=== PATIENT | male | born 1965 | race Caucasian/White ===

== ENCOUNTER → 2021-05-29 | Outpatient (CLI) | payer OTHER ==
[~2021-05-29] VITALS: Ht 170.2 cm; Wt 86.2 kg
[2021-05-29] VITALS (7 sets, daily range): BP systolic 129–145; BP diastolic 66–84
[~2021-05-29] MED LIST: AMLODIPINE BESY10 MG PO; ASA81BEC PO; BENAZEPRIL HCL40 MG PO; EFFIENT10 MG PO; FLOMAX0.4 MG PO; HYDROCODON-ACE1 EAC7 PO; IBUPROFEN 800800 MG PO; LIPITOR40 MG PO; MELOXICAM15 MG PO; NITROSTAT0.4 M1 SUBLING; NORCO 5-325 TA1 EACH PO; PROTONIX40 M2 PO; PROVENTIL HFA6.7 G1 INH; ZOFRAN4 MG PO
[2021-05-29 08:21] LABS: HEMATOCRIT 43.7 % (42.0-52.0); HEMOGLOBIN 15.1 gm/dL (14.0-18.0); MCH 32.1 pg (26.0-34.0); MCHC 34.5 g/dL (28.0-37.0); RBC 4.7 mil/uL (4.50-6.00); RDW 12.5 % (10.5-14.5); WBC 8.1 thou/uL (4.0-11.0)
[2021-05-29 08:30] LABS: CALCIUM 8.9 mg/dL (8.5-10.1); CREATININE 0.9 mg/dL (0.7-1.3); POTASSIUM 3.5 mmol/L (3.5-5.1)
== END | disposition home or self-care (01) ==
LOC: CATH 07:20
PROVIDERS: ATTEND Nuclear Medicine Nuclear Cardiology
DX: I70.213 Atherosclerosis of native arteries of extremities with intermittent claudication, bilateral legs (principal); I70.1 Atherosclerosis of renal artery; I10 Essential (primary) hypertension; I25.10 Atherosclerotic heart disease of native coronary artery without angina pectoris; E78.5 Hyperlipidemia, unspecified; Z87.442 Personal history of urinary calculi; F17.210 Nicotine dependence, cigarettes, uncomplicated; Z98.890 Other specified postprocedural states; Z79.899 Other long term (current) drug therapy; Z88.8 Allergy status to other drugs, medicaments and biological substances

== ENCOUNTER → 2021-08-28 | Outpatient (CLI) | payer OTHER | LOC: SJCVCIMAG 06:34 | PROVIDERS: ATTEND Nuclear Medicine Nuclear Cardiology | DX: I65.23 Occlusion and stenosis of bilateral carotid arteries (principal); I73.9 Peripheral vascular disease, unspecified; M79.604 Pain in right leg; M79.605 Pain in left leg ==

== ENCOUNTER → 2021-09-10 | Outpatient (CLI) | payer OTHER ==
[~2021-09-10] VITALS: Ht 170.2 cm; Wt 84.8 kg
[2021-09-10 07:23] VITALS: BP 147/85
[2021-09-10 07:38] LABS: HEMATOCRIT 45.2 % (42.0-52.0); HEMOGLOBIN 15.3 gm/dL (14.0-18.0); MCH 31.1 pg (26.0-34.0); MCHC 33.9 g/dL (28.0-37.0); MCV 91.9 fL (80.0-100.0); RBC 4.92 mil/uL (4.50-6.00); WBC 9.1 thou/uL (4.0-11.0)
[2021-09-10 07:53] LABS: CALCIUM 9.1 mg/dL (8.5-10.1); POTASSIUM 3.8 mmol/L (3.5-5.1)
--- NOTE | 2021-09-10 10:53 | NUR ---
COLLECTED UA AND MRSA SWAB
[2021-09-10 11:09] LABS: URINE BILIRUBIN NEGATIVE (Negative); URINE BLOOD TRACE (Negative); URINE CLARITY CLEAR; URINE COLOR YELLOW; URINE GLUCOSE-RANDOM* NEGATIVE (Negative); URINE KETONES NEGATIVE (Negative); URINE LEUKOCYTES-REFLEX NEGATIVE (Negative); URINE NITRITE-REFLEX NEGATIVE (Negative); URINE PROTEIN (DIPSTICK) NEGATIVE (Negative); URINE SPECIFIC GRAVITY <= 1.005 (1.005-1.035); URINE UROBILINOGEN 0.2 E.U./dl (0.2-1.0)
== END | disposition home or self-care (01) ==
LOC: CATH 09-09 07:17
PROVIDERS: Surgery Vascular Surgery; ATTEND Nuclear Medicine Nuclear Cardiology
DX: I65.23 Occlusion and stenosis of bilateral carotid arteries (principal); I70.1 Atherosclerosis of renal artery; M79.604 Pain in right leg; M79.605 Pain in left leg; I10 Essential (primary) hypertension; I73.9 Peripheral vascular disease, unspecified; I25.2 Old myocardial infarction; I25.10 Atherosclerotic heart disease of native coronary artery without angina pectoris; E78.5 Hyperlipidemia, unspecified; F17.210 Nicotine dependence, cigarettes, uncomplicated; Z98.890 Other specified postprocedural states; Z79.899 Other long term (current) drug therapy; Z87.442 Personal history of urinary calculi; Z88.8 Allergy status to other drugs, medicaments and biological substances

== ENCOUNTER 2021-09-11 15:17 | Inpatient (IN) | payer OTHER ==
[~2021-09-11] VITALS: Ht 170.2 cm; Wt 85.3 kg
[2021-09-19] MEDS ORDERED: BENAZEPRIL HCL20 MG PO (15:38)
[2021-09-19] MEDS ORDERED: EFFIENT10 MG PO (16:09)
[2021-09-27 07:12] VITALS: BP 140/91
--- NOTE | 2021-09-27 12:36 | NUR ---
Pt arrived to ICU from PACU accompanied by STEAM PIPE FITTER and PACU tech. PT had a right radial arterial line. Pt was on 2L NC . PT alert and oriented X3. at bedside. Pt updated on patient condition and was given ICU phone number and informed about the visitation policy. Pt groin site was checked by this RN and the STEAM PIPE FITTER. Right groin site soft and intact, no drainage on the dressing. Right neck soft and no drainage on the dressing.
[2021-09-28] VITALS (7 sets, daily range): BP systolic 92–123; BP diastolic 56–66
[2021-09-28 05:21] LABS: HEMATOCRIT 34.6 % (42.0-52.0); HEMOGLOBIN 11.9 gm/dL (14.0-18.0); MCH 31.8 pg (26.0-34.0); MCHC 34.3 g/dL (28.0-37.0); MCV 92.7 fL (80.0-100.0); RBC 3.74 mil/uL (4.50-6.00); WBC 12.6 thou/uL (4.0-11.0)
[2021-09-28 05:37] LABS: CALCIUM 7.9 mg/dL (8.5-10.1); CREATININE 1.1 mg/dL (0.7-1.3); POTASSIUM 4.1 mmol/L (3.5-5.1)
--- NOTE | 2021-09-28 13:27 | NUR ---
PT WAS DISCHARGED FROM ICU AT 1310 TO HOME. PT WAS PROVIDED WITH D/C PAPERWORK, EDUCATION, AND MEDICATION INFORMATION.
== END 2021-09-28 14:38 | disposition home or self-care (01) | DRG 36 ==
LOC: PRE → TBA 09-27 06:05 → PRE 09-27 10:55 → ICU 09-27 11:23 → PRE 09-27 12:42 → ICU 09-28 14:38
PROVIDERS: Physician Assistant; ADMIT Surgery Vascular Surgery; ATTEND Surgery Vascular Surgery
PROC: 037K3DZ Dilation of Right Internal Carotid Artery with Intraluminal Device, Percutaneous Approach (ICD-10-PCS; principal; 2021-09-27)
DX: I65.21 Occlusion and stenosis of right carotid artery (principal); I73.9 Peripheral vascular disease, unspecified; I10 Essential (primary) hypertension; E78.00 Pure hypercholesterolemia, unspecified; K21.9 Gastro-esophageal reflux disease without esophagitis; I25.10 Atherosclerotic heart disease of native coronary artery without angina pectoris; E78.5 Hyperlipidemia, unspecified; Z88.7 Allergy status to serum and vaccine; Z79.82 Long term (current) use of aspirin; Z79.899 Other long term (current) drug therapy; I25.2 Old myocardial infarction; Z87.442 Personal history of urinary calculi; Z71.6 Tobacco abuse counseling; Z95.5 Presence of coronary angioplasty implant and graft; Z87.891 Personal history of nicotine dependence
CPT/HCPCS: 10078; 47375; 50010; 50101; 50386; 50403; 50455; 51301; 52287; 54118; 56524; 56526; 56528; 56531; 62110; 62900; 70005

== ENCOUNTER → 2021-09-20 | Outpatient (CLI) | payer OTHER ==
[~2021-09-20] MED LIST changes: +BENAZEPRIL HCL20 MG PO
[2021-09-20 14:44] LABS: ABSOLUTE NEUTROPHILS 5.2 thou/uL (1.4-8.2); BASOPHILS 0.4 % (0.0-2.0); EOSINOPHILS 3.5 % (0.0-3.0); HEMATOCRIT 42.7 % (42.0-52.0); HEMOGLOBIN 14.6 gm/dL (14.0-18.0); LYMPHOCYTES 22.5 % (24.0-44.0); MCH 31.3 pg (26.0-34.0); MCHC 34.1 g/dL (28.0-37.0); MCV 91.6 fL (80.0-100.0); MONOCYTES 6.5 % (1.0-8.0); PLATELET COUNT 216 thou/uL (150-400); POLYS 67.1 % (36.0-66.0); RBC 4.66 mil/uL (4.50-6.00); RDW 12.6 % (10.5-14.5); WBC 7.7 thou/uL (4.0-11.0)
[2021-09-20 14:58] LABS: APTT 27.6 Seconds (24.5-32.8); INR 1.03; PROTIME 11.2 Seconds (10.5-12.1)
[2021-09-20 15:06] LABS: ALBUMIN 3.9 g/dL (3.4-5.0); TOTAL BILIRUBIN 0.4 mg/dL (0.2-1.0); TOTAL PROTEIN 6.9 g/dL (6.4-8.2)
--- NOTE | 2021-09-20 16:10 | EKG ---
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: JUSTINA HERNANDEZ : 1965 Requested By: Jacoby Contreras Order Number: [id number] : Tarun Talavera Measurements Intervals Lane Rate: 66 P: 54 NC: 153 QRS: 39 QRSD: 102 T: 51 QT: 404 QTc: 424 Interpretive Statements Sinus rhythm Borderline ST elevation, anterior leads No previous ECG available for comparison Electronically Signed On 09-20-2021 16:10:17 CDT by Tarun Talavera [email or web address] <ELECTRONICALLY SIGNED> By: Tarun Talavera MD, [facility] 09/20/21 1610 1424 1424 Tarun Talavera MD, FACC /EPI
== END | disposition home or self-care (01) ==
LOC: PAC 13:52
PROVIDERS: Surgery Vascular Surgery; ATTEND Orthopaedic Surgery
DX: Z01.818 Encounter for other preprocedural examination (principal); E11.9 Type 2 diabetes mellitus without complications; I10 Essential (primary) hypertension; R92.8 Other abnormal and inconclusive findings on diagnostic imaging of breast

== ENCOUNTER → 2021-09-25 | Outpatient (CLI) | payer OTHER | LOC: LAB 10:55 | PROVIDERS: ATTEND Student in an Organized Health Care Education/Training Program | DX: Z01.812 Encounter for preprocedural laboratory examination (principal); Z20.822 Contact with and (suspected) exposure to COVID-19 ==

== ENCOUNTER → 2021-10-30 | Outpatient (CLI) | payer OTHER | LOC: SJCVCIMAG 08:11 | PROVIDERS: ATTEND Nuclear Medicine Nuclear Cardiology | DX: I65.22 Occlusion and stenosis of left carotid artery (principal); I77.9 Disorder of arteries and arterioles, unspecified ==